=== PATIENT | female | born 1960 | race American Indian/Alaskan Native ===

== ENCOUNTER 2017-04-26 08:18 | Outpatient (CLI) | payer OTHER ==
--- NOTE | 2017-04-26 15:21 | Mammography Report ---
BILATERAL DIGITAL SCREENING MAMMOGRAM with CAD: 04/26/17 08:18:00 CLINICAL: Routine screening. COMPARISON:None available. Her previous mammogram was in [facility]. FINDINGS: The breasts are mostly fatty.A left upper outer asymmetry with architectural distortion requires additional imaging. No mass or suspicious calcifications. The right breast is negative. IMPRESSION: Left asymmetry and architectural distortion requiring further workup. BI-RADS CATEGORY: 0 -- Additional Imaging Evaluation Required RECOMMENDATION: Recall for left mediolateral , spot magnification CC and MLO views and left breast ultrasound if needed. ACR BI-RADS MAMMOGRAPHIC CODES: 0 = Needs additional imaging evaluation; 1 = Negative; 2 = Benign; 3 = Probably benign; 4 = Suspicious; 5 = Malignant; 6 = Known biopsy-proven malignancy COMMENT: 1. Dense breast tissue, i.e., adenosis, fibrocystic changes, etc., may obscure an underlying neoplasm. 2. Approximately 10% of cancers are not detected with mammography. 3. A negative mammography report should not delay biopsy if a clinically suspicious mass is present. COMMENT: Patient follow-up letters are generated via our [employer] application.
== END 2017-04-26 08:19 | disposition home or self-care (01) ==
LOC: MAMMO 08:18
PROVIDERS: ATTEND Family Medicine
DX: Z12.31 Encounter for screening mammogram for malignant neoplasm of breast (principal)
CPT/HCPCS: 77067; G0202

== ENCOUNTER 2017-09-08 08:31 | Day surgery (SDC) | payer OTHER ==
[~2017-09-08 08:31] MED LIST: NACL 0.9% ONE
[2017-09-08] MEDS ORDERED: NACL 0.9% 1000 ML 1,000 ML IV SCH (09:00)
[2017-09-08] MEDS ORDERED: WATER FOR IRRIG STERILE IR ONE (09:21)
[2017-09-08] MEDS ORDERED: WATER FOR IRRIG STERILE ONE (09:21)
--- NOTE | 2017-09-08 09:28 | Anesthesia Consultation ---
Anesthesia Consult and Med Hx Date of service: 09/08/17 - Airway Anesthetic Teeth Evaluation: Good ROM Head & Neck: Adequate Mental/Hyoid Distance: Adequate Mallampati Class: Class II Intubation Access Assessment: Probably Good - Pulmonary Exam CTA: Yes - Cardiac Exam Cardiac Exam: RRR - Pre-Operative Health Status ASA Pre-Surgery Classification: ASA2 Proposed Anesthetic Plan: MAC - Cardiovascular System Hx Hypertension: Yes
--- NOTE | 2017-09-08 09:28 | Anesthesia Day of Surgery ---
Anesthesia Day of Surgery - Day of Surgery Patient Examined: Yes Patient H&P Reviewed: Yes Patient is NPO: Yes Beta Blockers: Yes
[2017-09-08] MEDS ORDERED: DIPRIVAN 10 MG/ML IV ONE ×3 (09:31→10:14)
[2017-09-08] MEDS ORDERED: XYLOCAINE MPF 2% ONE (10:30)
--- NOTE | 2017-09-08 10:54 | Operative Report ---
Operative Report Operative Report: Date of procedure: 09/08/2017 Procedure: Colonoscopy endoscopic mucosal resection of cecal polyp (submucosal injection with snare polypectomy of broad-based polyp and closure of defect with a Hemoclip), ablation of descending colon polyps, hot biopsy polypectomy of transverse colon polyp, descending colon polyp, and sigmoid colon polyp. Attending physician: Ry Tripathi MD Cold Storage Worker: Ry Tripathi MD Indication: Patient is a 57-year-old male who presents for screening colonoscopy. A colonoscopy serves to evaluate patient for colorectal cancer screening. Consent: Informed consent was obtained after advising the patient and family regarding nature of this procedure, its indications, potential benefits as well as possible complications including but not limited to bleeding perforation and adverse reaction to medication, infection as well as other cardiopulmonary complications. An informed written and verbal consent was then obtained after due opportunity was provided for questions and answers. Monitoring: Patient was monitored continuously with pulse oximetry and electrocardiographic recordings as well as blood pressure recordings. Vital signs remained stable throughout this procedure with no untoward events. Preoperative assessment: Patient was assessed immediately prior to this procedure for capacity to tolerate monitored anesthesia care and moderate sedation as well as general anesthesia. Patient's ASA classification is 2, Mallampati class is 2, Hyomental distance is 3. Instrument: Quality Systemsn video colonoscope Medications: Propofol given intravenously in divided doses. For details please refer to anesthesia records. Description of procedure: Patient was placed in the left lateral decubitus position after achieving sedation, a digital rectal examination was performed following which the colonoscope was introduced into the anal verge and advanced to the cecum which was identified by the cecal valve, the appendiceal orifice, as well as by the cecal strap and direct transillumination. The colonoscope was subsequently withdrawn with careful inspection of all mucosal surfaces. Patient tolerated this procedure well and was subsequently taken to the recovery room. The following findings were noted. Findings: There were scattered diverticula in the sigmoid colon, descending colon and ascending colon. Beginning in the cecum, patient had a broad-based large flat polyp. This was elevated using submucosal injection of saline. It was subsequently removed by snare electrocautery. The edges of the polyp avulsed with a hot biopsy forcep. Subsequently the defect created in this area was closed with a Hemoclip. The ascending colon otherwise was normal. In the transverse colon, patient had a sessile 6 mm polyp which was removed by hot biopsy polypectomy and retrieved. In the descending colon, there were 2 flat diminutive polyps that were ablated. There also was an adjoining sessile 5-6 mm polyp which is removed by hot biopsy polypectomy and retrieved. In the sigmoid colon, there was a 6 mm sessile polyp that was removed by hot biopsy polypectomy and retrieved. The rectum was normal. There was liquid scattered stool with some solid fragments seen in the ascending colon and in the transverse colon and proximal descending colon. On the retroflex view at the anal verge, patient had prominent internal hemorrhoids. Impression: Cecal polyp status post endoscopic mucosal resection. Transverse colon polyp status po hot biopsy polypectomy. Descending colon polyps status post ablation. Descending colon polyp status post cold biopsy polypectomy. Sigmoid colon polyp status post hot biopsy polypectomy. Diverticular disease of the colon. Retained stool. Internal hemorrhoids. Plan: Follow pathology report High-fiber diet. Repeat colonoscopy in 1 year, given the patient had several polyps and had areas of retained stool..
--- NOTE | 2017-09-08 10:55 | Discharge Summary ---
Short Stay Discharge Plan Activity: advance as tolerated Weight Bearing Status: Weight Bear as Tolerated Diet: regular Additional Instructions: Post Sedation D/C Instructions When you return home you may resume your regular diet unless otherwise directed. -Go directly home from the hospital and rest quietly. You may resume normal activities tomorrow. -Do NOT drive, return to work, operate any machinery or make any important personal or business decisions today. -Do NOT drink any alcohol or take nerve or sleeping drugs. They add to the effects of the medicine still present in your body. Follow up with: DENISE BROWN MD [Primary Care Provider] - 7 Days
[2017-09-08 11:13] VITALS: BP 134/92
--- NOTE | 2017-09-08 14:36 | Post Anesthesia Evaluation ---
- Post Anesthesia Evaluation Patient Participated: Yes Airway Patent: Yes Stable Respiratory Function: Yes Nausea/Vomiting: No Temp > 96.8F: Yes Pain Manageable: Yes Adequeate Hydration: Yes Anesthesia Complications: No
== END 2017-09-08 08:32 | disposition home or self-care (01) ==
LOC: GIO 08:31
PROVIDERS: ATTEND Internal Medicine Gastroenterology
DX: Z12.11 Encounter for screening for malignant neoplasm of colon (principal); K57.30 Diverticulosis of large intestine without perforation or abscess without bleeding; K64.8 Other hemorrhoids; K63.5 Polyp of colon; I10 Essential (primary) hypertension
CPT/HCPCS: 45381; 45384; 45385; 45388; 81025; 88305; J2704; J7030